=== PATIENT | female | born 1985 | race Two or more races ===

== ENCOUNTER 2025-07-10 08:10 | Outpatient (AMB) | payer OTHER, SELFPAY ==
--- NOTE | 2025-07-10 12:58 | MHC.OFFVISWM ---
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 Required: Yes Environmental Aide Services: Environmental Aide Present Information Interpreted: clinical only Allergies No Known Allergies Allergy (Verified 07/10/25 13:06) Medication List - Last Reconciled 07/10/25 by Franky Paul MD atorvastatin (Lipitor) 40 mg PO DAILY glipizide 5 mg PO DAILY levothyroxine 25 mcg PO DAILY metformin ER 1,000 mg PO QPM HPI 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 meat, beans, salad) Dinner: 8pm (pasta, bread, plantains) Snacks: none Exercise: none Beverages: Coffee (8oz/d with sugar), Tea: none, Soda: regular Coke (1/wk), Kylie (1/wk), Juice: [place] (2/wk), ETOH: none PFSH Medical History (Updated 07/10/25 @ 13:11 by Franky Paul MD) Lower extremity edema Anxiety Hypothyroidism Hyperlipidemia Non-insulin dependent type 2 diabetes mellitus Morbid obesity Surgical History (Updated 06/26/25 @ 15:27 by Wendy Feng CMA) No history of previous surgery Family History (Updated 06/26/25 @ 15:27 by Wendy Feng CMA) Mother Diabetes Father Hypertension Social History (Updated 06/26/25 @ 15:28 by Wendy Feng CMA) Alcohol intake: never Patient Tobacco Use Status: Never used Tobacco Physical Exam Vital Signs: BMI result Body Mass Index 40.5 Telehealth Telehealth Telehealth Platform: Telephone Location of provider rendering services: practice address Location of patient: address on file Patient Identification confirmed using: Name, : Yes Telehealth method: voice only Patient verbally consented to treatment: Yes Patient verbally consented to billing insurance company: Yes Patient informed of any privacy concerns related to visit: Yes Minutes spent on Phone/Video with Pt.: 60 Assessment & Plan Assessment & Plan (1) Morbid obesity: Code(s): E66.01 - Morbid (severe) obesity due to excess calories Category: Medical Plan: 1.? Plan for lap sleeve gastrectomy. If diaphragmatic or ventral hernias are present at time of surgery, these will be repaired laparoscopically as well. I emphasized the importance of close follow-up, adherence to instructions and good communication. The surgery does not replace the need to change your lifestlyle which is the cause of the obesity problem. The surgery provides the motivation to try again to change your lifestyle, it reduces the appetite and make the transition to a better lifestyle easier and doubles the amount of weight you would lose compared to doing the lifestyle change without the surgery. You will need to be on a liquid diet with protein shakes for 2 weeks before surgery to maximize weight loss and boost your nutritional status to recover better from surgery and also for the first two weeks after surgery to let the stomach heal before we introduce other foods. After the first 2 weeks we will introduce protein bars and soft foods like scrambled eggs, cottage cheese and yogurt and after the 6th week will introduce meat, fish and cooked vegetables in small amounts. Over time you should be able to eat everything in small amounts. Side effects like nausea, vomiting, heartburn or abdominal pain are not common in the practice unless you are not following in the practice. This operation requires lifetime commitment to following in our practice and communication with me. You will much less weight and experience side effects if you don?t communicate or not following in the practice. Complications are rare and in our practice is about 1/10 of the national average. However, you can develop bleeding that may require transfusion (hasn?t happened for year in the practice), you may from complications (we did not have any deaths in the practice) and infections. Infections are usually a result of breakdown in communication or not understanding or following directions correctly. They are difficult to treat, they can happen during the first 6 weeks, they may require to be in the hospital for weeks or even months, not being able to eat by mouth and you may have drains and surgeries to try and correct the issue. Other risks and complications include possible conversion to an open procedure, leaks, small bowel obstruction, blood clots, cardiac, or pulmonary complications, as terminal clerk complications such as ulcers, insufficient weight loss and vitamin deficiencies. 2. Nutritional counseling. Start with one CELEBRATE REBUILD protein (buy online with the link I gave you) shakes (ONE scoop in 8oz low fat unsweetened almond milk) at 7am-9am, 1 protein bar (CELEBRATE protein bars, buy at [facility] [employer] [facility], buy online with the link I gave you) ) at 10am-12pm, another CELEBRATE REBUILD protein shake (ONE scoop in 8oz low fat unsweetened almond milk) at 1pm-3pm, another Celebrate protein bar at 4pm-6pm, dinner at 7pm (8 forks of protein and 8 forks of salad/vegetables) AND another Celebrate protein bar after dinner at 9pm-11pm. So you do 2 protein shakes, 3 protein bars and one meal per day. Meal to include lean meat (beef, fish, pork, turkey, chicken), or khmer yogurt, or egg whites, or beans with a salad with olive oil and fruits (berries, pears, apples, kiwi). Avoid salt, breads, potatoes, rice, pasta, desserts. 3. Each shake would be drunk slowly, like coffee in a period of 2 hours. 4. Cut each bar in 4 pieces and eat each piece in 30min ?to make each bar last 2 hours. 5. I emphasized the importance of measuring accurately the food portion and measure it when serving the food in plate 6. The meal portions include 8 full-size forks of meat and 8 full-size forks of salad. You always eat the meat portion but you can replace up to 4 forks for salad/vegetables with rice, potatoes or pasta, or a fruit ?if you like. The less you do it the better weight loss will be. 7. One full-size fork is what it can be scooped on the fork without falling aside and not what can be bit with the fork. Use regular forks like those you find in a typical restaurant. 8.? Please buy the body composition scale we discussed and send me weight measurements as soon as possible and then once a week. Always include your diet and exercise plan. 9. Start walking outside daily, tracking calories with a goal of 300 calories per day, daily. Goal is to burn 2000 calories per week on exercise, which means either 300 calories daily, or 400 calories 5 days per week, or 500 calories 4 days per week, or 650 calories 3 days per week. 10. The best choice would be to purchase a stationary bike at home that can track calories. If you get one, please start stationary bike at a resistance level of 4.0 Increase level by 1.0 every 3 min to a max level of 10.0. Stay at this level for 3 min and then return to level 4.0 and repeat same steps until 300 calories are burned. Goal is to burn 2000 calories per week on exercise 11.?It is important of avoiding and for at least 18 months postoperatively and has been discussed at the infosession. 12. Goal is to lose at least 1.5-2lbs per week 13. Goal to lose 10% of your weight before surgery, which is about 23lbs. Ultimate weight goal: 220lbs before surgery 14. Please follow the diet plan exactly without any change. If you don't like something about the plan or you feel hungry you need to communicate with me so I can help you revise the plan. You should not change the plan yourself 15. To be scheduled for EGD to assess the stomach's anatomy. The possibility of biopsies was discussed. Patient needs to avoid use of NSAIDs and aspirin for 1 week prior to EGD. You must be on liquids only the day before your endoscopy. Risks of perforation and bleeding was discussed with the patient. This will be an outpatient procedure with IV sedation. Orders: Orders Insulin Today E03.9 - Hypothyroidism, unspecified, E11.9 - Type 2 diabetes mellitus without complications, E66.01 - Morbid (severe) obesity due to excess calories, E78.5 - Hyperlipidemia, unspecified Hemoglobin A1c Today E03.9 - Hypothyroidism, unspecified, E11.9 - Type 2 diabetes mellitus without complications, E66.01 - Morbid (severe) obesity due to excess calories, E78.5 - Hyperlipidemia, unspecified H Pylori Breath Test Today E03.9 - Hypothyroidism, unspecified, E11.9 - Type 2 diabetes mellitus without complications, E66.01 - Morbid (severe) obesity due to excess calories, E78.5 - Hyperlipidemia, unspecified Complete Blood Count Auto Diff Today E03.9 - Hypothyroidism, unspecified, E11.9 - Type 2 diabetes mellitus without complications, E66.01 - Morbid (severe) obesity due to excess calories, E78.5 - Hyperlipidemia, unspecified Lipid Panel Today E03.9 - Hypothyroidism, unspecified, E11.9 - Type 2 diabetes mellitus without complications, E66.01 - Morbid (severe) obesity due to excess calories, E78.5 - Hyperlipidemia, unspecified Comprehensive Met. Panel Today E03.9 - Hypothyroidism, unspecified, E11.9 - Type 2 diabetes mellitus without complications, E66.01 - Morbid (severe) obesity due to excess calories, E78.5 - Hyperlipidemia, unspecified Zinc Today E03.9 - Hypothyroidism, unspecified, E11.9 - Type 2 diabetes mellitus without complications, E66.01 - Morbid (severe) obesity due to excess calories, E78.5 - Hyperlipidemia, unspecified US abdomen comp w elastography Today E03.9 - Hypothyroidism, unspecified, E11.9 - Type 2 diabetes mellitus without complications, E66.01 - Morbid (severe) obesity due to excess calories, E78.5 - Hyperlipidemia, unspecified ECG 12 lead EKG Today E03.9 - Hypothyroidism, unspecified, E11.9 - Type 2 diabetes mellitus without complications, E66.01 - Morbid (severe) obesity due to excess calories, E78.5 - Hyperlipidemia, unspecified IRON PROFILE Today E03.9 - Hypothyroidism, unspecified, E11.9 - Type 2 diabetes mellitus without complications, E66.01 - Morbid (severe) obesity due to excess calories, E78.5 - Hyperlipidemia, unspecified Vitamin B12 and Folate Today E03.9 - Hypothyroidism, unspecified, E11.9 - Type 2 diabetes mellitus without complications, E66.01 - Morbid (severe) obesity due to excess calories, E78.5 - Hyperlipidemia, unspecified C Reactive Protein Today E03.9 - Hypothyroidism, unspecified, E11.9 - Type 2 diabetes mellitus without complications, E66.01 - Morbid (severe) obesity due to excess calories, E78.5 - Hyperlipidemia, unspecified Vitamin B1 Today E03.9 - Hypothyroidism, unspecified, E11.9 - Type 2 diabetes mellitus without complications, E66.01 - Morbid (severe) obesity due to excess calories, E78.5 - Hyperlipidemia, unspecified Vitamin A Today E03.9 - Hypothyroidism, unspecified, E11.9 - Type 2 diabetes mellitus without complications, E66.01 - Morbid (severe) obesity due to excess calories, E78.5 - Hyperlipidemia, unspecified TSH reflex Free T4 Today E03.9 - Hypothyroidism, unspecified, E11.9 - Type 2 diabetes mellitus without complications, E66.01 - Morbid (severe) obesity due to excess calories, E78.5 - Hyperlipidemia, unspecified Ferritin Today E03.9 - Hypothyroidism, unspecified, E11.9 - Type 2 diabetes mellitus without complications, E66.01 - Morbid (severe) obesity due to excess calories, E78.5 - Hyperlipidemia, unspecified Vitamin D 25-OH Total Today E03.9 - Hypothyroidism, unspecified, E11.9 - Type 2 diabetes mellitus without complications, E66.01 - Morbid (severe) obesity due to excess calories, E78.5 - Hyperlipidemia, unspecified XR chest 2V Today E03.9 - Hypothyroidism, unspecified, E11.9 - Type 2 diabetes mellitus without complications, E66.01 - Morbid (severe) obesity due to excess calories, E78.5 - Hyperlipidemia, unspecified FL upper GI w air Today E03.9 - Hypothyroidism, unspecified, E11.9 - Type 2 diabetes mellitus without complications, E66.01 - Morbid (severe) obesity due to excess calories, E78.5 - Hyperlipidemia, unspecified Referrals Nutrition/Dietitian Referral E03.9 - Hypothyroidism, unspecified, E11.9 - Type 2 diabetes mellitus without complications, E66.01 - Morbid (severe) obesity due to excess calories, E78.5 - Hyperlipidemia, unspecified Behavioral Health Referral E03.9 - Hypothyroidism, unspecified, E11.9 - Type 2 diabetes mellitus without complications, E66.01 - Morbid (severe) obesity due to excess calories, E78.5 - Hyperlipidemia, unspecified
[2025-07-10 12:59] VITALS: BMI 40.5
== END 2025-07-10 16:45 | disposition home or self-care (01) ==
LOC: HO.HBS 08:10
PROVIDERS: PCP Physician Assistant; Visit Provider Surgery
DX: E66.01 Morbid (severe) obesity due to excess calories (principal); Z68.41 Body mass index [BMI] 40.0-44.9, adult
CPT/HCPCS: 98011

== ENCOUNTER → 2025-07-24 09:25 | Outpatient (REF) | payer OTHER, SELFPAY ==
--- NOTE | ~2025-07-24 | XR_ITS ---
EXAMINATION: XR CHEST 2 VIEWS HISTORY: E66.01 - Morbid (severe) obesity due to excess calories COMPARISON: There are no prior studies available for comparison. FINDINGS: PA and lateral views of the chest are submitted. The lungs are expanded and clear. There is no pleural effusion, pneumothorax, or pulmonary vascular congestion. The heart is normal in size. The bones are intact. XR/XR chest 2V IMPRESSION: Normal examination of the chest. Electronically signed by: Gus Fierro MD 07/24/2025 10:48 AM EDELMIRA
--- NOTE | 2025-07-24 09:32 | ECG_ITS ---
Test Reason : OBESITY Blood Pressure : */* mmHG Vent. Rate : 79 BPM Atrial Rate : 79 BPM P-R Int : 162 ms QRS Dur : 74 ms QT Int : 374 ms P-R-T Axes : 49 27 16 degrees QTcB Int : 428 ms Normal sinus rhythm Normal ECG No previous ECGs available Referred By: Franky Paul Electronically Signed By: Russ Cueto
[2025-07-24 09:46] LABS: MANUAL DIFF FLAG NO
[2025-07-24 10:14] LABS: Hematocrit 40.2 % (37.0-47.0); Hemoglobin 13.4 g/dl (12.0-16.0); Imm Gran Abs Auto 0.03 X10*3/uL (0.00-0.03); Imm Gran Pct Auto 0.4 % (0.0-0.4); Lymphocytes Absolute Auto 2.4 X10*3/uL (1.2-4.9); Mean Corpuscular HGB Conc 33.3 g/dl (31.0-35.0); Mean Corpuscular Hemoglobin 27.6 pg (27.0-33.0); Mean Corpuscular Volume 82.7 fL (80.0-98.0); NRBC Abs Auto 0.000 X10*3/uL (0.0-0.012); NRBC Pct Auto 0.0 /100WBC (0.0-0.2); Platelet Count 349 X10*3/uL (160-400); Red Blood Count 4.86 X10*6/uL (4.20-5.50); White Blood Count 6.9 X10*3/uL (4.8-10.8)
[2025-07-24 11:33] LABS: Alanine Aminotransferase 44 U/L (0-31); Albumin Level 4.2 g/dL (3.5-5.0); Alkaline Phosphatase 119 U/L (39-117); Anion Gap 11 (12-20); Aspartate Amino Transferase 30 U/L (5-31); Blood Urea Nitrogen 9 mg/dL (9-16); Calcium 8.8 mg/dL (8.4-10.2); Carbon Dioxide 26 mmol/L (22-29); Chloride 103 mmol/L (96-108); Cholesterol 179 mg/dL (<200); Estimated Glomerular Filt Rate > 60; Ferritin 64 ng/mL (10-250); HDL Cholesterol 41 mg/dL (>40); Iron 118 mcg/dL (30-160); Percent Iron Saturation 42 % (15-50); Potassium 3.8 mmol/L (3.3-5.1); Sodium 136 mmol/L (135-145); Total Iron Binding Capacity 281 mcg/dL (228-428); Total Protein 7.3 g/dL (6.5-8.0); Triglycerides 83 mg/dL (<150); Unsaturated Iron Binding 163 ug/dL
[2025-07-24 11:46] LABS: Folate 13.2 ng/mL (> or = 4.0); Vitamin B12 701 pg/mL (200-900)
== END ==
LOC: HO.CARD 09:25
PROVIDERS: PCP Internal Medicine; Visit Provider Surgery
DX: E66.01 Morbid (severe) obesity due to excess calories (principal); E03.9 Hypothyroidism, unspecified; E11.69 Type 2 diabetes mellitus with other specified complication; E78.5 Hyperlipidemia, unspecified
CPT/HCPCS: 36415; 71046; 80053; 80061; 82306; 82607; 82728; 82746; 83036; 83525; 83540; 84425; 84443; 84590; 84630; 85025; 86140; 93005

== ENCOUNTER → 2025-07-24 09:32 | Outpatient (BNV) | payer OTHER, SELFPAY | PROVIDERS: PCP Internal Medicine; Visit Provider Internal Medicine Cardiovascular Disease | DX: E66.01 Morbid (severe) obesity due to excess calories (principal) | CPT/HCPCS: 93010 ==

== ENCOUNTER → 2025-07-24 09:46 | Outpatient (BNV) | payer OTHER, SELFPAY | PROVIDERS: PCP Internal Medicine; Visit Provider Radiology Diagnostic Radiology | DX: E66.01 Morbid (severe) obesity due to excess calories (principal); Z68.41 Body mass index [BMI] 40.0-44.9, adult | CPT/HCPCS: 71046 ==

== ENCOUNTER 2025-08-15 07:42 | Day surgery (SDC) | payer OTHER, SELFPAY ==
[2025-08-11 09:12] VITALS: BMI 40.4
[2025-08-15 08:03] VITALS: BMI 39.7
[2025-08-15 08:06] LABS: UPreg QC Valid YES
[2025-08-15 08:12] VITALS: BP 131/89; PULSE 72; RESP 16; TEMP 36.8; O2SAT 97
[2025-08-15] MEDS: Lactated Ringers 1,000 ML 80 ML IVCONT (08:20)
[2025-08-15 08:23] LABS: Glucose, Whole Blood 205 mg/dL (60-115)
--- NOTE | 2025-08-15 08:26 | HO.ANESPROP2 ---
Documented by User: Grecia Bean NP 08/10/25 14:41 HPI - Anesthesia Eval Consult details Narrative: 40yo F for Upper Endoscopy Anesthesia Pre-Procedure Meds Is the patient on any of the following meds?: GLP1/DPP4 PMFSH Active Problems Active Problems: All Active Problems Vitamin A deficiency (Acute) Vitamin D deficiency (Acute) LFT elevation (Acute) Lower extremity edema (Acute) Anxiety (Acute) Hypothyroidism (Acute) Hyperlipidemia (Acute) Non-insulin dependent type 2 diabetes mellitus (Acute) Morbid obesity (Acute) Past Medical History Medical History (Updated 08/02/25 @ 17:27 by Franky Paul MD) Vitamin A deficiency Lower extremity edema Anxiety Hypothyroidism Hyperlipidemia Non-insulin dependent type 2 diabetes mellitus Morbid obesity Family History Family History (Updated 06/26/25 @ 15:27 by Wendy Feng CMA) Mother Diabetes Father Hypertension Surgical History Surgical History (Updated 06/26/25 @ 15:27 by Wendy Feng CMA) No history of previous surgery Social History Social History (Updated 06/26/25 @ 15:28 by Wendy Feng CMA) Are you a primary plant health care technician to a significant other at home: No Do you presently have visiting nurse or other home services: No Alcohol intake: never Patient Tobacco Use Status: Never used Tobacco Second Hand Smoke Exposure: No Have you been hit, kicked, punched, or otherwise hurt by someone within the past year? If so, by whom?: No Are you DNR?: No Advance Directives: No Advance Directives Information Provided: Yes Advance Directives on File: No Patient : No : No Meds Allergies Allergy/AdvReac Type Severity Reaction Status Date / Time No Known Allergies Allergy Verified 07/10/25 13:06 Home Medications ?Medication ?Instructions ?Recorded ?Confirmed ?Last Taken ?Type metformin 500 mg tablet,extended 1,000 mg PO QPM 06/26/25 08/11/25 Unknown History release 24 hr atorvastatin 40 mg tablet (Lipitor) 40 mg PO DAILY 07/10/25 08/11/25 Unknown History glipizide 5 mg tablet 5 mg PO DAILY 07/10/25 08/11/25 Unknown History levothyroxine 25 mcg capsule 25 mcg PO DAILY 07/10/25 08/11/25 Unknown History Assessment and Plan Assessment Anesthesia Assessment: Chart Reviewed Documented by User: Valeria Arce DO 08/15/25 08:29 HPI - Anesthesia Eval Anesthesia Pre-Procedure Meds Is the patient on any of the following meds?: GLP1/DPP4 PMFSH Past Medical History Medical History (Updated 08/02/25 @ 17:27 by Franky Paul MD) Vitamin A deficiency Lower extremity edema Anxiety Hypothyroidism Hyperlipidemia Non-insulin dependent type 2 diabetes mellitus Morbid obesity Family History Family History (Updated 06/26/25 @ 15:27 by Wendy Feng CMA) Mother Diabetes Father Hypertension Family history of problems with anesthesia: No Surgical History Surgical History (Updated 06/26/25 @ 15:27 by Wendy Feng CMA) No history of previous surgery History of Problems with Anesthesia: No Social History Social History (Updated 06/26/25 @ 15:28 by Wendy Feng CMA) Are you a primary plant health care technician to a significant other at home: No Do you presently have visiting nurse or other home services: No Alcohol intake: never Patient Tobacco Use Status: Never used Tobacco Second Hand Smoke Exposure: No Have you been hit, kicked, punched, or otherwise hurt by someone within the past year? If so, by whom?: No Are you DNR?: No Advance Directives: No Advance Directives Information Provided: Yes Advance Directives on File: No Patient : No : No Meds Allergies Allergy/AdvReac Type Severity Reaction Status Date / Time No Known Allergies Allergy Verified 07/10/25 13:06 Home Medications ?Medication ?Instructions ?Recorded ?Confirmed ?Last Taken ?Type metformin 500 mg tablet,extended 1,000 mg PO QPM 06/26/25 08/11/25 Unknown History release 24 hr atorvastatin 40 mg tablet (Lipitor) 40 mg PO DAILY 07/10/25 08/11/25 Unknown History glipizide 5 mg tablet 5 mg PO DAILY 07/10/25 08/11/25 Unknown History levothyroxine 25 mcg capsule 25 mcg PO DAILY 07/10/25 08/11/25 Unknown History Exam Exam Date and Time: 08/15/25 0825 Height,Weight and Vital Signs: Height 5 ft 5 in Weight 108.3 kg Vital Signs Temperature 98.3 F 08/15/25 08:12 Pulse Rate 72 08/15/25 08:12 Respiratory Rate 16 08/15/25 08:12 Blood Pressure 131/89 08/15/25 08:12 Pulse Oximetry 97 08/15/25 08:12 Oxygen Delivery Method Room Air 08/15/25 08:12 Temperature 98.3 F 08/15/25 08:12 Pulse Rate 72 08/15/25 08:12 Respiratory Rate 16 08/15/25 08:12 Blood Pressure 131/89 08/15/25 08:12 Pulse Oximetry 97 08/15/25 08:12 Oxygen Delivery Method Room Air 08/15/25 08:12 Airway Mallampati Class: III TM Dist: >3cm Neck ROM: Full Loose/Missing/Broken Teeth: No (patient denies any loose or broken teeth) Heart: S1S2 Lungs: CTAB Assessment and Plan Assessment Anesthesia Assessment: Anesthesia Plan Discussed and Chart Reviewed Final Anesthetic Review Family History of Problems with Anesthesia: No History of Problems with Anesthesia: No NPO: Yes ASA Class: III Final Preanesthetic Review: No Changes in Pt Med Stat, Meds/Allgs Chart Reviewed, Consent Obtained/Reviewed and Anes Risks/Benef Reviewed Patient Risk: Low Procedure Risk: Low Anesthetic Plan Anesthetic Plan: MAC: and Agree w/ Assess. and Plan Disposition: Standard PACU
--- NOTE | 2025-08-15 08:36 | MHC.SHP ---
Pre-Procedural Eval Section A - 24 Hr Update-Section A only Date of Service: 08/15/25 The patient is an INPATIENT: No The patient has been examined within 24 hours of the surgical procedure. The History & Physical has been completed within 30 days and I have reviewed it.: Yes Section B - Complete if H&P > 30 days Chief Complaint: Obesity, unspecified Relevant Family History (Specify if Yes): No Relevant Social History: None Present Medications: None Medical History: No relevant PMH History of Previous Operations: No relevant previous surgery Allergies: Allergies Allergy/AdvReac Type Severity Reaction Status Date / Time No Known Allergies Allergy Verified 07/10/25 13:06 Review of Systems Sugical H&P ROS: Negative: Constitution, Cardiovascular, Respiratory, Neurological, Psychiatric, Hem-Onc, Allergic/Immunologic, Gastrointestinal, Genitourinary, Musculoskeletal, Integumentary, Endocrine and Eyes/Ears/Nose/Throat Exam Surgical H&P Exam: Normal: HEENT, Normal: Heart, Normal: Lungs, Normal: Extremities, Normal: Abdomen, Normal: Skin and Normal: Neurological Plan Diagnosis/Plan: Unchanged (EGD to assess the stomach's anatomy. Risks of bleeding and perforation were discussed with the patient and she is in agreement with the plan.) I have reviewed the history and physical and performed a pertinent physical examination on my patient. No changes have occurred unless specified. Time Spent With Patient Time: Total time managing care of this patient today ____ minutes.
--- NOTE | 2025-08-15 08:42 | P.BOP_ITS ---
Brief Operative Note Date of Service: 08/15/25 Pre-op diagnosis: Morbid obesity Post-op diagnosis: same Procedure: PROCEDURE DATE: 08/15/2025 PREOPERATIVE DIAGNOSIS: Morbid obesity POSTOPERATIVE DIAGNOSIS: ?Same as above. PROCEDURE: [id number] with biopsies Surgeon: Jr Paul M.D.. Ph.D. Gambling Floor Supervisor: None ? Anesthesia: IV sedation Estimated blood loss: ?Minimal FINDINGS AND PROCEDURE: ? OPERATIVE INDICATIONS: ?The patient is a 40 year old female known to me who is interested in bariatric surgery. Based on this information I recommended an upper endoscopy to evaluate the patient's symptoms. Risks and complications of the surgery were discussed with the patient in advance particularly the possibility of perforation or bleeding that may require surgical intervention. The patient understood the risks and was in agreement with the plan. ? PROCEDURE: After informed consent was obtained by the patient, the patient was ?transferred to the Operating Room and was placed in the supine position.? After successful induction of IV sedation, a mouth block was inserted and the patient was placed in the left lateral decubitus position. An upper endoscopy was performed next, the oropharynx and esophagus appeared within the normal limits. There was no hiatal hernia. The z-line was smooth. Two biopsies were obtained from the distal esophagus 2-3 cm proximal to the GE junction and two additional biopsies from the GE junction. The stomach was entered and it appeared to be of normal size. There was no gastritis. There was no stricture or ulcer. A biopsy was obtained from the gastric fundus and the antrum. No significant bleeding was noted from any of the biopsy sites. Retroflexion of the scope confirmed the presence of a normal GE junction. The scope was then advanced into the duodenum to the 4th portion, which appeared to be normal as well. At that point the duodenum ?and the stomach were decompressed and the scope was withdrawn from the patient's mouth. The patient extubated and was transferred in stable condition to the Recovery Room for further care. I was present and performed all steps of the procedure. There were no residents to assist with this case. John Paul M.D., Ph.D. Surgeon: Franky Paul MD Anesthesia: MAC Was an Gambling Floor Supervisor used for this Procedure?: No Estimated blood loss (mL): 0 IV fluids (mL): 400 Urine output (mL): 0 (No Smith to record output) Pathology: other (1) antrum x1, 2) fundus x1, 3) GE junction x2, 4) distal esophagus x2) Condition: stable Disposition: PACU
[2025-08-15 08:59] VITALS: BP 119/78; PULSE 86; RESP 16; TEMP 36.1; O2SAT 100
[2025-08-15 09:10] VITALS: BP 119/82; PULSE 85; RESP 18; TEMP 36.1; O2SAT 95
== END 2025-08-15 09:47 | disposition home or self-care (01) ==
PROVIDERS: Nurse Practitioner; PCP Physician Assistant; Visit Provider Surgery
PROC: 0DJ08ZZ Inspection of Upper Intestinal Tract, Via Natural or Artificial Opening Endoscopic (ICD-10-PCS; CPT 43235; principal; 2025-08-15 08:30)
DX: E66.01 Morbid (severe) obesity due to excess calories (principal); Z68.41 Body mass index [BMI] 40.0-44.9, adult; R60.0 Localized edema; E78.5 Hyperlipidemia, unspecified; E03.9 Hypothyroidism, unspecified; E11.9 Type 2 diabetes mellitus without complications; Z79.84 Long term (current) use of oral hypoglycemic drugs; Z79.899 Other long term (current) drug therapy
CPT/HCPCS: 43239; 81025; 82947; 88305; 88313; 88342; J2704

== ENCOUNTER → 2025-08-15 07:42 | Outpatient (BNV) | payer OTHER, SELFPAY | PROVIDERS: PCP Physician Assistant; Visit Provider Surgery | DX: E66.01 Morbid (severe) obesity due to excess calories (principal); Z68.41 Body mass index [BMI] 40.0-44.9, adult; E11.9 Type 2 diabetes mellitus without complications; E78.5 Hyperlipidemia, unspecified | CPT/HCPCS: 43239 ==

== ENCOUNTER 2025-08-30 13:01 | Outpatient (AMB) | payer OTHER, SELFPAY ==
--- NOTE | 2025-08-30 13:05 | MHC.WMTHER ---
Intake Intake Visit Reasons: OV BH Intake Allergies No Known Allergies Allergy (Verified 07/10/25 13:06) [facility] Medical History (Updated 08/02/25 @ 17:27 by Franky Paul MD) Vitamin A deficiency Lower extremity edema Anxiety Hypothyroidism Hyperlipidemia Non-insulin dependent type 2 diabetes mellitus Morbid obesity Surgical History (Updated 06/26/25 @ 15:27 by Wendy Feng CMA) No history of previous surgery Family History (Updated 06/26/25 @ 15:27 by Wendy Feng CMA) Mother Diabetes Father Hypertension Social History (Updated 06/26/25 @ 15:28 by Wendy Feng CMA) Are you a primary home care assistant to a significant other at home: No Do you presently have visiting nurse or other home services: No Alcohol intake: never Patient Tobacco Use Status: Never used Tobacco Second Hand Smoke Exposure: No Behavioral Health Assessment Weight Management Therapy Therapy Notes Details PT is 40 years old female, who presents for initial visit to start BH assessment as part of surgical weight loss program. PT initially referred by her PCP. Presenting Concerns Referral Source WMP-Provider. Reason for referral Completion of behavioral health assessment as part of process for weight-loss surgery. Precipitating Event Obesity. Living Situation Current Living Situation Rent At risk of losing current housing? No Satisfied with current living situation? Yes Comments Pt lives with her . Social History Family history and relationship PT about a year ago. Parents alive, she has 4 siblings. Her mother lives in , father lives in [place]. PT reports good family relationships. 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 she supports financially her mother. Developmental history and status None reported. Social support Family, . Community support PCP Oriental Orthodox/Spirituality Anabaptist. Cultural/Ethnic information , PT was born in [place] been in [place] 3 years ago. Legal Involvement and History Current or historical involvement with the legal system? None reported Education Highest grade completed Bachelors degree. Currently enrolled in educational program? No Interested in further educational program? 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 ) Wants help to find employment? No Financial Situation Describe current financial situation Occasional struggle Financial assistance? None Service Service? No Medical and Physical Health Summary Additional Medical History not covered in history None aditional Sexual History concerns None reported. Physical exam in the last year? Yes Pain Screening Current pain? Yes Pain in the last few months? Yes Comments Knee pain and foot pain when swollen. Medications Is the patient compliant with medications? Yes Does the patient have Champagne Guardian in place? Not applicable Does the patient use complimentary health approaches? No Questionnaires PHQ-9 Over the last 2 weeks, how often have you been bothered by any of the following problems? 1. Little interest or pleasure in doing things: nearly every day 2. Feeling down, depressed, or hopeless: several days 3. Trouble falling or staying asleep, or sleeping too much: not at all 4. Feeling tired or having little energy: nearly every day 5. Poor appetite or overeating: more than half the days 6. Feeling bad about yourself - or that you are a failure or have let yourself or your family down: nearly every day 7. Trouble concentrating on things, such as reading the newspaper or watching television: nearly every day 8. Moving or speaking so slowly that other people could have noticed. Or the opposite - being so fidgety or restless that you have been moving around a lot more than usual: not at all 9. Thoughts that you would be better off or of hurting yourself in some way: not at all Total score: 15 Depression Screening Interpretation: Positive (From new Pt pack- new one will be administered at next feroz.) Depression Screening Done: Yes Source: Developed by Drs. Gus Dyer, Ju Rico, Yinka Galdamez and colleagues, with an educational elizabeth from [employer]. Binge Eating Scale Group 1 A. I don't feel self-conscious about my wt. or body size when I'm with others. B. I feel concerned about how I look to others, but it normally does not make me fell disappointed with myself C. I do get self-conscious about my appearance and wt. which makes me feel disappointed in myself. D. I feel very self-conscious about my wt. and frequently I feel intense shame and disgust for myself. I try to avoid social contacts because of my self-consciousness. Response Group 1: C Group 2 A. I don't have any difficulty eating slowly in the proper manner. B. Although I seem to gobble down foods, I don't end up feeling stuffed because of eating to much. C. At times, I tend to eat quickly and then, I feel uncomfortably full afterwards. D. I have the habit of bolting down my food, without really chewing it. When this happens I usually feel uncomfortably stuffed because I've eaten to much. Response Group 2: A Group 3 A. I feel capable to control my eating urges when I want to. B. I feel like I have failed to control my eating more than the average person. C. I feel utterly helpless when it comes to feeling in control of my eating urges. D. Because I feel so helpless about controlling my eating I have become very desperate about trying to get control. Response Group 3: A Group 4 A. I don't have the habit of eating when I'm bored. B. I sometimes eat when I'm bored, but often I'm able to get busy and get my mind off food. C. I have a regular habit of eating when I'm bored, but occasionally, I can use some other activity to get my mind off eating. D. I have a strong habit of eating when I'm bored. Nothing seems to help me breath the habit. Response Group 4: D Group 5 A. I'm usually physically hungry when I eat something. B. Occasionally, I eat something on impulse even though I really am not hungry. C. I have the regular habit of eating foods, that I might not really enjoy, to satisfy a hungry feeling even though physically, I don't need the food. D. Although I'm not physically hungry, I get a hungry feeling in my mouth that only seems to be satisfied when I eat a food, like sandwich, that fills my mouth. Sometimes, when I eat the food to satisfy my mouth hunger, I then spit the food out so I won't gain weight. Response Group 5: C Group 6 A. I don't feel any guilt or self-hate after I overeat. B. After I overeat, occasionally I feel guilt or self-hate. C. Almost all the time I experience strong guilt or self-hate after I overeat. Response Group 6: B Group 7 A. I don't lose total control of my eating when dieting even after periods when I overeat. B. Sometimes when I eat a forbidden food on a diet, I feel like I blew it and eat even more. C. Frequently, I have the habit of saying to myself, I've blown it now, why not go all the way, when I overeat on a diet. When that happens I eat more. D. I have a regular habit of starting a strict diets for myself but I break the diets by going on an eating binge. My life seems to be either a feast or famine. Response Group 7: B Group 8 A. I rarely eat so much food that I feel uncomfortably stuffed afterwards. B. Usually about once a month, I each such a quantity of food, I end up feeling very stuffed. C. I have regular periods during the month when I eat large amounts of food, either at mealtime or at snacks. D. I eat so much food that I regularly feel quite uncomfortable after eating and sometimes a bit nauseous. Response Group 8: C Group 9 A. My level of calorie intake does not go up very high or go down very low on a regular basis. B. Sometimes after I overeat, I will try to reduce my caloric intake to almost nothing to compensate for the excess calories I've eaten. C. I have a regular habit of overeating during the night. It seems that my routine is not to be hungry in the morning but overeat in the evening. D. In my adult years, I have had week-long periods where I practically starve myself. This follows periods when I overeat. It seems I live a life of either feast or famine. Response Group 9: C Group 10 A. I usually am able to stop eating when I want to. I know when enough is enough. B. Every so often, I experience a compulsion to eat which I can't seem to control. C. Frequently, I experience strong urges to eat which I seem unable to control, but at other times I can control my eating urges. D. I feel incapable of controlling urges to eat. I have a fear of not being able to stop eating voluntarily. Response Group 10: B Group 11 A. I don't have any problem stopping eating when I feel full. B. I usually can stop eating when I feel full but occasionally overeat leaving me feeling uncomfortably stuffed. C. I have a problem stopping eating once I start and usually I feel uncomfortably stuffed after I eat a meal. D. Because I have a problem not being able to stop eating when I want, I sometimes have to induce vomiting to relieve my stuffed feeling. Response Group 11: C Group 12 A. I seem to eat just as much when I'm with others, Family social gatherings as when I'm by myself. B. Sometimes, when I'm with other persons, I don't eat as much as I want to eat because I'm self-conscious about my eating. C. Frequently, I eat only a small amount of food when others are present, because I'm very embarrassed about my eating. D. I feel so ashamed about overeating that I pick times to overeat when I know no one will see me. I feel like a closet eater. Response Group 12: B Group 13 A. I eat three meals a day with only an occasional between meal snack. B. I eat 3 meals a day, but I also normally snack between meals. C. When I am snacking heavily, I get in the habit of skipping regular meals. D. There are regular periods when I seem to be continually eating, with no planned meals. Response Group 13: C Group 14 A. I don't think much about trying to control unwanted eating urges. B. At least some of the time, I feel my thoughts are pre-occupied with trying to control my eating urges. C. I feel that frequently I spend much time thinking about how much I ate or about trying not to eat anymore. D. It seems to me that most of my waking hours are pre-occupied by thoughts about eating or not eating. I feel like I'm constantly struggling not to eat. Response Group 14: C Group 15 A. I don't think about food a great deal. B. I have strong craving for food but they last only for brief periods of time. C. I have days when I can't seem to think about anything else but food. D. Most of my days seem to be pre-occupied with thoughts about food. I feel like I live to eat. Response Group 15: D Group 16 A. I usually know whether or not I'm physically hungry. I take the right portion of food to satisfy me. B. Occasionally, I feel uncertain about knowing whether or not I'm physically hungry. A these times it's hard to know how much food I should take to satisfy me. C. Even though I might know how many calories I should eat, I don't have any idea what is a normal amount of food for me. Response Group 16: A Binge Eating Score: 24 Score less than 17 Minimal Risk Score between 18-26 Moderate Risk Score between 27-46 High Risk Assessment & Plan Assessment & Plan (1) Adjustment disorder: Code(s): F43.20 - Adjustment disorder, unspecified (2) Pre-bariatric surgery psychological evaluation: Code(s): Z71.89 - Other specified counseling Plan The patient was not cleared today as the assessment was not completed. The patient will return in 2-4 weeks to continue the evaluation. Next appointment: 09/25/2025 at 2pm, video but placed in a cancelation list as surgeon wants to submit her [place]. [place] [address] Psy Diag Eval Patient Type New Diagnoses Adjustment disorder F43.20 Pre-bariatric surgery psychological evaluation Z71.89 Time Spent (min) 55
== END 2025-08-30 15:03 | disposition home or self-care (01) ==
LOC: HO.HBST 13:02
PROVIDERS: Visit Provider Counselor Mental Health
DX: F43.20 Adjustment disorder, unspecified (principal); Z71.89 Other specified counseling
CPT/HCPCS: 90791